=== PATIENT | male | born 1960 | race Caucasian/White ===

== ENCOUNTER 2018-10-03 12:37 | Emergency (ER) | payer MEDICAID ==
[~2018-10-03] VITALS: Ht 160 cm; Wt 60.0 kg
[~2018-10-03 12:37] MED LIST: ALBU18HF2 IH; ALBU8.5H8 INH; ATOR10TA87 PO; BECL7.3A INH; BECL8.7A7 INH; CLA10T PO; IBUP-1984 PO; MECL12.584 PO; PANT20TA2 PO; SOTA80TA PO; WARF5TAB PO; ZOLP5TAB8 PO; tylenol PO
[2018-10-03 12:41] VITALS: BP 150/70
== END 2018-10-03 14:48 | disposition home or self-care (01) ==
LOC: ER 12:37
DX: S86.912A Strain of unspecified muscle(s) and tendon(s) at lower leg level, left leg, initial encounter (principal); E78.00 Pure hypercholesterolemia, unspecified; I48.91 Unspecified atrial fibrillation; I10 Essential (primary) hypertension; K21.9 Gastro-esophageal reflux disease without esophagitis; J44.9 Chronic obstructive pulmonary disease, unspecified; E11.9 Type 2 diabetes mellitus without complications; Z86.73 Personal history of transient ischemic attack (TIA), and cerebral infarction without residual deficits; X58.XXXA Exposure to other specified factors, initial encounter; Y93.01 Activity, walking, marching and hiking; Y92.89 Other specified places as the place of occurrence of the external cause; Y99.8 Other external cause status
CPT/HCPCS: 99284

== ENCOUNTER 2024-05-18 15:21 | Inpatient (IN) | payer MEDICAID ==
[~2024-05-18] VITALS: Ht 165.1 cm; Wt 60.1 kg
[~2024-05-18 15:21] MED LIST changes: +ALBU8.5H17 INH; -ALBU8.5H8 INH; +MECL-226 PO; -MECL12.584 PO; -WARF5TAB PO; +WARF5TAB2 PO
[2024-05-18 15:53] LABS: BILIRUBIN,URINE NEGATIVE (Neg); CLARITY,URINE CLEAR (Clear); COLOR,URINE YELLOW (Yellow); GLUCOSE, URINE NEGATIVE (Neg); KETONES,URINE NEGATIVE (Neg); LEUKOCYTE ESTERASE ,URINE NEGATIVE (Neg); NITRITES, URINE NEGATIVE (Neg); OCCULT BLOOD,URINE SMALL (Neg); PROTEIN,URINE NEGATIVE (Neg); UROBILINOGEN,URINE 0.2 E.U/dL (0.2-1.0)
[2024-05-18 15:57] LABS: UA COLLECTION TYPE CLN CATCH MIDSTREAM
[2024-05-18 15:58] LABS: MUCUS STRANDS MODERATE /LPF (Neg); SQUAMOUS EPITHELIAL CELL,UR FEW /LPF (FEW)
[2024-05-18 15:59] LABS: BACTERIA,URINE FEW /HPF (Neg); WBC,URINE 0-4 /HPF (0-4)
[2024-05-18 16:13] LABS: BASOPHILS % (AUTO) 0.2 % (0-1); EOSINOPHILS # (AUTO) 0.1 X10'3 (0-0.9); HEMATOCRIT 37.9 % (42.0-52.0); HEMOGLOBIN 12.6 g/dl (14.0-17.9); LYMPHOCYTES # (AUTO) 2.2 X10'3 (1.1-4.8); LYMPHOCYTES % (AUTO) 29.5 % (21-51); MEAN CORPUSCULAR HEMOGLOBIN 30.4 PG (27.0-31.0); MEAN CORPUSCULAR HGB CONC 33.2 g/dL (33.0-36.5); MEAN CORPUSCULAR VOLUME 91.5 FL (78-98); MEAN PLATELET VOLUME 7.4 FL (7.4-10.4); MONOCYTES # (AUTO) 0.7 X10'3 (0-0.9); MONOCYTES % (AUTO) 9.2 % (2-12); NEUTROPHILS # (AUTO) 4.3 X10'3 (1.8-7.7); NEUTROPHILS % (AUTO) 59.1 % (42-75); PLATELET COUNT 169 X10'3 (140-440); RED BLOOD COUNT 4.14 X10'6 (4.70-6.10); RED CELL DISTRIBUTION WIDTH 15.3 % (11.5-14.5); WHITE BLOOD COUNT 7.3 X10'3 (4.5-11.0)
[2024-05-18] MEDS: normal saline 1000ml 1,000 ML IV ONE ×2 (16:26→17:24)
[2024-05-18 16:31] LABS: ALANINE AMINOTRANSFERASE 28 U/L (12-78); ALBUMIN 3.4 G/DL (3.4-5.0); ALKALINE PHOSPHATASE 70 IU/L (46-116); ANION GAP 9 (8-16); ASPARTATE AMINO TRANSFERASE 18 U/L (10-37); BILIRUBIN,TOTAL 0.8 MG/DL (0.1-1.0); BLOOD UREA NITROGEN 32 MG/DL (7-18); BUN/CREATININE RATIO 23.7 (10.0-20.0); CALCIUM 9.4 MG/DL (8.5-10.1); CHLORIDE 107 MMOL/L (99-107); CREATININE 1.35 MG/DL (0.60-1.10); ETHANOL < 10 MG/DL (<10); GLUCOSE 124 MG/DL (70-104); LIPASE 83 U/L (16-77); MAGNESIUM 2.1 MG/DL (1.5-2.4); SODIUM 143 MMOL/L (135-145); TOTAL CARBON DIOXIDE 27.3 MMOL/L (24-32); TOTAL PROTEIN 6.9 G/DL (6.4-8.2); eCRCL 46 ML/MIN; eGFR 53 ML/MIN
[2024-05-18 16:32] LABS: POTASSIUM 4.3 MMOL/L (3.5-5.1)
[2024-05-18] MEDS ORDERED: morphine 2 MG/ML inj. syringe IV PRN (17:15)
[2024-05-18] MEDS: ketorolac tromethamine 15mg/ml inj. IV ONE (17:23)
[2024-05-18] MEDS ORDERED: magnesium Cl slow-release 64mg tablet PO PRN (17:40)
[2024-05-18] MEDS ORDERED: mag hydrox/Alum hydrox/simeth 30ml oral suspension PO PRN (17:40)
[2024-05-18] MEDS ORDERED: magnesium 4gm in 100ml NS 100 ML IV PRN (17:40)
[2024-05-18] MEDS ORDERED: magnesium 2GM in 50ml NS 50 ML IV PRN (17:40)
[2024-05-18] MEDS ORDERED: magnesium hydroxide 30ml (MOM) UD suspension PO PRN (17:40)
[2024-05-18] MEDS ORDERED: potassium Cl 20 mEq SR tablet PO PRN ×2 (17:40)
[2024-05-18] MEDS ORDERED: acetaminophen 325mg tablet PO PRN (17:40)
[2024-05-18] MEDS ORDERED: potassium Cl 40MEQ/1/2NS 520ml 520 ML IV PRN (17:40)
[2024-05-18] MEDS ORDERED: CALC-1215 PO (17:41)
[2024-05-18] MEDS ORDERED: APIX5TAB3 PO (17:41)
[2024-05-18] MEDS ORDERED: ALBU18HF2 INH (17:41)
[2024-05-18] MEDS ORDERED: ATOR40TA PO (17:41)
[2024-05-18] MEDS ORDERED: TIOT4MIS3 (17:41)
[2024-05-18] MEDS ORDERED: MAGN400O6 PO (17:41)
[2024-05-18] MEDS: piperacillin/tazo 3.375gm/50ml 50 ML IV STA (17:57)
[2024-05-18] MEDS: dextrose 5%-1/2 normal saline 1,000 ML IV SCH (18:01)
[2024-05-18] MEDS ORDERED: aminophylline 250mg/10ml inj. IV PRN (18:20)
[2024-05-18] MEDS ORDERED: nitroGLYCERIN 0.4mg SUBLingual tab SL PRN (18:20)
[2024-05-18] MEDS ORDERED: metoprolol tartrate 1mg/ml inj IV PRN (18:20)
[2024-05-18 18:38] LABS: HEMOGLOBIN A1C 5.5 % (4.5-6.2)
[2024-05-18 20:05] VITALS: BP 135/58; PULSE 65; RESP 16; TEMP 97.8; O2SAT 98
[2024-05-18] MEDS: enoxaparin 40mg/0.4ml syringe SQ SCH (20:32)
[2024-05-18] MEDS: docusate sod 100mg capsule PO SCH (20:34)
[2024-05-18 21:00] VITALS: RESP 16; O2SAT 98
[2024-05-18 23:00] VITALS: BP 127/46; PULSE 65; RESP 18; TEMP 98; O2SAT 97
[2024-05-19] VITALS (13 sets, daily range): BP systolic 97–140; BP diastolic 49–63; PULSE 48–87; RESP 14–20; TEMP 97.4–97.9; O2SAT 97–99
[2024-05-19] MEDS: piperacillin/tazo 3.375gm/50ml 50 ML IV SCH (00:32)
[2024-05-19 06:14] LABS: BASOPHILS % (AUTO) 0.7 % (0-1); EOSINOPHILS # (AUTO) 0.2 X10'3 (0-0.9); EOSINOPHILS % (AUTO) 2.9 % (0-6); HEMATOCRIT 33.1 % (42.0-52.0); HEMOGLOBIN 10.9 g/dl (14.0-17.9); LYMPHOCYTES # (AUTO) 2.2 X10'3 (1.1-4.8); LYMPHOCYTES % (AUTO) 35.4 % (21-51); MEAN CORPUSCULAR HEMOGLOBIN 29.9 PG (27.0-31.0); MEAN CORPUSCULAR HGB CONC 32.9 g/dL (33.0-36.5); MEAN CORPUSCULAR VOLUME 90.9 FL (78-98); MEAN PLATELET VOLUME 7.9 FL (7.4-10.4); MONOCYTES # (AUTO) 0.7 X10'3 (0-0.9); MONOCYTES % (AUTO) 11.1 % (2-12); NEUTROPHILS # (AUTO) 3.2 X10'3 (1.8-7.7); NEUTROPHILS % (AUTO) 49.9 % (42-75); PLATELET COUNT 137 X10'3 (140-440); RED BLOOD COUNT 3.64 X10'6 (4.70-6.10); RED CELL DISTRIBUTION WIDTH 15.2 % (11.5-14.5); WHITE BLOOD COUNT 6.3 X10'3 (4.5-11.0)
[2024-05-19 06:29] LABS: PRE OP PARTIAL THROMB. TIME 29 SECONDS (22-32); PROTHROMBIN TIME 10.8 SECONDS (9.0-12.0)
[2024-05-19 06:46] LABS: ALANINE AMINOTRANSFERASE 24 U/L (12-78); ALBUMIN 2.7 G/DL (3.4-5.0); ALBUMIN/GLOBULIN RATIO 0.9 (1.1-1.5); ALKALINE PHOSPHATASE 61 IU/L (46-116); ANION GAP 11 (8-16); ASPARTATE AMINO TRANSFERASE 20 U/L (10-37); BILIRUBIN,TOTAL 0.4 MG/DL (0.1-1.0); BLOOD UREA NITROGEN 38 MG/DL (7-18); BUN/CREATININE RATIO 30.6 (10.0-20.0); CALCIUM 8.2 MG/DL (8.5-10.1); CHLORIDE 111 MMOL/L (99-107); CHOL/HDL RATIO 2.2 (0.00-4.99); CHOLESTEROL 108 MG/DL (0-200); CREATININE 1.24 MG/DL (0.60-1.10); GLUCOSE 107 MG/DL (70-104); HDL CHOLESTEROL 49 MG/DL (35-60); LDL CHOLESTEROL 49 MG/DL (50-100); MAGNESIUM 1.9 MG/DL (1.5-2.4); POTASSIUM 3.8 MMOL/L (3.5-5.1); SODIUM 144 MMOL/L (135-145); TOTAL CARBON DIOXIDE 21.6 MMOL/L (24-32); TOTAL PROTEIN 5.6 G/DL (6.4-8.2); TRIGLYCERIDES 70 MG/DL (20-135); eCRCL 50 ML/MIN; eGFR 59 ML/MIN
[2024-05-19] MEDS: enoxaparin 40mg/0.4ml syringe SUBCUT SCH (07:27)
[2024-05-19] MEDS: morphine 2 MG/ML inj. syringe IV PRN (07:47)
[2024-05-19] MEDS ORDERED: acetaminophen 325mg tablet PO PRN (10:55)
[2024-05-19] MEDS: regadenoson 0.4mg/5ml syringe IV PRN (11:08)
[2024-05-19] MEDS: enoxaparin 60mg/0.6ml syringe SUBCUT SCH (12:23)
[2024-05-19] MEDS ORDERED: magnesium hydroxide 30ml (MOM) UD suspension PO SCH (20:00)
[2024-05-19] MEDS: sotalol HCl 40mg (1/2 tablet) PO SCH (20:32)
[2024-05-19] MEDS: HYDROcodone/acetaminophen 10/325mg tab PO PRN (20:34)
[2024-05-19] MEDS: atorvastatin 20mg tablet PO SCH (20:34)
[2024-05-19] MEDS: calcium carbonate/vitamin D3 tablet PO SCH (20:34)
[2024-05-20] VITALS (26 sets, daily range): BP systolic 109–174; BP diastolic 51–81; PULSE 53–77; RESP 13–20; TEMP 96.8–99; O2SAT 92–100
[2024-05-20] MEDS: HYDROcodone/acetaminophen 5mg/325mg tablet PO PRN (00:42)
[2024-05-20 05:42] LABS: BASOPHILS % (AUTO) 0.5 % (0-1); EOSINOPHILS # (AUTO) 0.2 X10'3 (0-0.9); EOSINOPHILS % (AUTO) 4.5 % (0-6); HEMATOCRIT 31.3 % (42.0-52.0); HEMOGLOBIN 10.4 g/dl (14.0-17.9); LYMPHOCYTES # (AUTO) 2.3 X10'3 (1.1-4.8); LYMPHOCYTES % (AUTO) 43.6 % (21-51); MEAN CORPUSCULAR HEMOGLOBIN 30.4 PG (27.0-31.0); MEAN CORPUSCULAR HGB CONC 33.2 g/dL (33.0-36.5); MEAN CORPUSCULAR VOLUME 91.6 FL (78-98); MEAN PLATELET VOLUME 7.9 FL (7.4-10.4); MONOCYTES # (AUTO) 0.5 X10'3 (0-0.9); MONOCYTES % (AUTO) 9.2 % (2-12); NEUTROPHILS # (AUTO) 2.2 X10'3 (1.8-7.7); NEUTROPHILS % (AUTO) 42.2 % (42-75); PLATELET COUNT 129 X10'3 (140-440); RED BLOOD COUNT 3.41 X10'6 (4.70-6.10); RED CELL DISTRIBUTION WIDTH 15.1 % (11.5-14.5); WHITE BLOOD COUNT 5.3 X10'3 (4.5-11.0)
[2024-05-20 06:11] LABS: ALANINE AMINOTRANSFERASE 23 U/L (12-78); ALBUMIN 2.5 G/DL (3.4-5.0); ALBUMIN/GLOBULIN RATIO 0.9 (1.1-1.5); ALKALINE PHOSPHATASE 38 IU/L (46-116); ANION GAP 9 (8-16); ASPARTATE AMINO TRANSFERASE 14 U/L (10-37); BILIRUBIN,TOTAL 0.6 MG/DL (0.1-1.0); BLOOD UREA NITROGEN 24 MG/DL (7-18); BUN/CREATININE RATIO 18.2 (10.0-20.0); CALCIUM 7.9 MG/DL (8.5-10.1); CHLORIDE 106 MMOL/L (99-107); CREATININE 1.32 MG/DL (0.60-1.10); GLUCOSE 389 MG/DL (70-104); MAGNESIUM 1.8 MG/DL (1.5-2.4); POTASSIUM 3.8 MMOL/L (3.5-5.1); SODIUM 139 MMOL/L (135-145); TOTAL PROTEIN 5.2 G/DL (6.4-8.2); eCRCL 47 ML/MIN; eGFR 54 ML/MIN
[2024-05-20] MEDS: Tiotropium Br/Olodaterol HCl (Stiolto Respimat Inhal Spray) IH SCH (08:00)
[2024-05-20 09:08] LABS: PROTHROMBIN TIME 10.9 SECONDS (9.0-12.0)
[2024-05-20] MEDS: normal saline 1000ml 1,000 ML IV SCH (11:32)
[2024-05-20] MEDS ORDERED: morphine 2 MG/ML inj. syringe IV PRN (14:30)
[2024-05-20] MEDS ORDERED: meperidine/PF 25mg/ml syringe IV PRN ×2 (14:30)
[2024-05-20] MEDS ORDERED: morphine 4 MG/ML inj SYRINge IV PRN (14:30)
[2024-05-20] MEDS ORDERED: proCHLORperazine 10 MG/2 ml inj IV PRN (14:30)
[2024-05-20] MEDS ORDERED: labetalol 20mg/4ml (5mg/ml) syringe IV PRN (14:30)
[2024-05-20] MEDS ORDERED: ringers solution, lacted 1,000 ML IV SCH (14:30)
[2024-05-20] MEDS ORDERED: ondansetron/PF 4mg/2ml inj IV PRN (14:30)
[2024-05-20] MEDS: BUPIVAcaine/PF 2.5mg/ml (0.25%) 10ml vial ONE (14:55)
[2024-05-20] MEDS ORDERED: midazolam 1 mg/ML 2ml injection ONE (16:01)
[2024-05-20] MEDS ORDERED: fentaNYL/PF 50MCG/1 ML 2ML syringe ONE (16:01)
[2024-05-20] MEDS ORDERED: propofol inj 20 ML IV ONE (16:14)
[2024-05-20] MEDS ORDERED: LIDOcaine 2% (20mg/ml) 5ml vial ONE (16:14)
[2024-05-20] MEDS ORDERED: rocuronium 10mg/ml inj IV ONE (16:14)
[2024-05-20] MEDS ORDERED: sevoflurane 250ml liquid IH ONE (16:20)
[2024-05-20] MEDS: BUPIVAcaine/PF 5 MG/ML 10ML VIAL IJ ONE (17:00)
[2024-05-20] MEDS ORDERED: ondansetron/PF 4mg/2ml inj ONE (17:16)
[2024-05-20] MEDS ORDERED: ketorolac trometh. 30mg/ml inj. ONE (17:19)
[2024-05-20] MEDS ORDERED: neostigmine methylsulfate 1 MG/ML 10ml vial ONE (17:20)
[2024-05-20] MEDS ORDERED: glycopyrrolate 0.2mg/ml inj ONE (17:20)
[2024-05-20] MEDS: meperidine/PF 25mg/ml syringe IV PRN (18:30)
[2024-05-20] MEDS: enalaprilat dihydrate 2.5mg/2ml vial IV PRN (18:37)
[2024-05-20] MEDS: morphine 2 MG/ML inj. syringe IV PRN (22:14)
[2024-05-20] MEDS: ondansetron/PF 4mg/2ml inj IV PRN (22:18)
[2024-05-21] VITALS (10 sets, daily range): BP systolic 95–113; BP diastolic 40–71; PULSE 60–78; RESP 16–20; TEMP 96.8–98.4; O2SAT 91–99
[2024-05-21 07:13] LABS: ALANINE AMINOTRANSFERASE 104 U/L (12-78); ALBUMIN 2.8 G/DL (3.4-5.0); ALBUMIN/GLOBULIN RATIO 0.9 (1.1-1.5); ALKALINE PHOSPHATASE 53 IU/L (46-116); ANION GAP 12 (8-16); ASPARTATE AMINO TRANSFERASE 112 U/L (10-37); BILIRUBIN,TOTAL 1.1 MG/DL (0.1-1.0); BLOOD UREA NITROGEN 24 MG/DL (7-18); BUN/CREATININE RATIO 19.2 (10.0-20.0); CALCIUM 8.2 MG/DL (8.5-10.1); CHLORIDE 109 MMOL/L (99-107); CREATININE 1.25 MG/DL (0.60-1.10); GLUCOSE 130 MG/DL (70-104); MAGNESIUM 1.8 MG/DL (1.5-2.4); POTASSIUM 4.7 MMOL/L (3.5-5.1); SODIUM 141 MMOL/L (135-145); TOTAL CARBON DIOXIDE 19.8 MMOL/L (24-32); TOTAL PROTEIN 5.9 G/DL (6.4-8.2); eCRCL 50 ML/MIN; eGFR 58 ML/MIN
[2024-05-21 13:05] LABS: BASOPHILS % (AUTO) 0 % (0-1); EOSINOPHILS % (AUTO) 0 % (0-6); HEMATOCRIT 33.5 % (42.0-52.0); HEMOGLOBIN 10.9 g/dl (14.0-17.9); LYMPHOCYTES # (AUTO) 1.2 X10'3 (1.1-4.8); LYMPHOCYTES % (AUTO) 10.7 % (21-51); MEAN CORPUSCULAR HEMOGLOBIN 30.6 PG (27.0-31.0); MEAN CORPUSCULAR HGB CONC 32.4 g/dL (33.0-36.5); MEAN CORPUSCULAR VOLUME 94.3 FL (78-98); MEAN PLATELET VOLUME 7.8 FL (7.4-10.4); MONOCYTES # (AUTO) 0.9 X10'3 (0-0.9); MONOCYTES % (AUTO) 8.5 % (2-12); NEUTROPHILS # (AUTO) 8.9 X10'3 (1.8-7.7); NEUTROPHILS % (AUTO) 80.8 % (42-75); PLATELET COUNT 141 X10'3 (140-440); RED BLOOD COUNT 3.55 X10'6 (4.70-6.10); RED CELL DISTRIBUTION WIDTH 15.4 % (11.5-14.5)
[2024-05-21 21:31] LABS: HEMATOCRIT 30.7 % (42.0-52.0); HEMOGLOBIN 10.2 g/dl (14.0-17.9); MEAN CORPUSCULAR HEMOGLOBIN 30.9 PG (27.0-31.0); MEAN CORPUSCULAR HGB CONC 33.2 g/dL (33.0-36.5); MEAN PLATELET VOLUME 7.8 FL (7.4-10.4); PLATELET COUNT 154 X10'3 (140-440); RED CELL DISTRIBUTION WIDTH 15.3 % (11.5-14.5); WHITE BLOOD COUNT 8.8 X10'3 (4.5-11.0)
[2024-05-22] VITALS (10 sets, daily range): BP systolic 102–137; BP diastolic 38–48; PULSE 68–87; RESP 16–20; TEMP 97–98.5; O2SAT 91–98
[2024-05-22] MEDS: albuterol 2.5 MG/3 ML nebule NEB PRN (01:43)
[2024-05-22 04:26] LABS: BASOPHILS % (AUTO) 0.1 % (0-1); EOSINOPHILS % (AUTO) 0.1 % (0-6); HEMATOCRIT 30.1 % (42.0-52.0); HEMOGLOBIN 9.5 g/dl (14.0-17.9); LYMPHOCYTES # (AUTO) 1.9 X10'3 (1.1-4.8); LYMPHOCYTES % (AUTO) 26.5 % (21-51); MEAN CORPUSCULAR HEMOGLOBIN 30.5 PG (27.0-31.0); MEAN CORPUSCULAR HGB CONC 31.5 g/dL (33.0-36.5); MEAN CORPUSCULAR VOLUME 96.7 FL (78-98); MEAN PLATELET VOLUME 7.7 FL (7.4-10.4); MONOCYTES # (AUTO) 0.9 X10'3 (0-0.9); MONOCYTES % (AUTO) 12.5 % (2-12); NEUTROPHILS # (AUTO) 4.3 X10'3 (1.8-7.7); NEUTROPHILS % (AUTO) 60.8 % (42-75); PLATELET COUNT 129 X10'3 (140-440); RED BLOOD COUNT 3.11 X10'6 (4.70-6.10); RED CELL DISTRIBUTION WIDTH 15.9 % (11.5-14.5); WHITE BLOOD COUNT 7.2 X10'3 (4.5-11.0)
[2024-05-22 04:42] LABS: ALANINE AMINOTRANSFERASE 83 U/L (12-78); ALBUMIN 2.5 G/DL (3.4-5.0); ALBUMIN/GLOBULIN RATIO 0.9 (1.1-1.5); ALKALINE PHOSPHATASE 47 IU/L (46-116); ANION GAP 7 (8-16); ASPARTATE AMINO TRANSFERASE 68 U/L (10-37); BILIRUBIN,TOTAL 0.7 MG/DL (0.1-1.0); BLOOD UREA NITROGEN 31 MG/DL (7-18); BUN/CREATININE RATIO 21.8 (10.0-20.0); CHLORIDE 112 MMOL/L (99-107); CREATININE 1.42 MG/DL (0.60-1.10); GLUCOSE 132 MG/DL (70-104); POTASSIUM 4.2 MMOL/L (3.5-5.1); SODIUM 142 MMOL/L (135-145); TOTAL CARBON DIOXIDE 23.4 MMOL/L (24-32); TOTAL PROTEIN 5.3 G/DL (6.4-8.2); eCRCL 44 ML/MIN; eGFR 50 ML/MIN
[2024-05-22] MEDS ORDERED: ondansetron 4mg rapidly disintigrating tab PO PRN (10:40)
[2024-05-22] MEDS: DICLOFENAC SODIUM 1% gel 1 APPLIC APPLIC TP SCH (19:51)
[2024-05-23 04:22] LABS: BASOPHILS % (AUTO) 0.2 % (0-1); EOSINOPHILS # (AUTO) 0.1 X10'3 (0-0.9); EOSINOPHILS % (AUTO) 2.2 % (0-6); HEMATOCRIT 25.8 % (42.0-52.0); HEMOGLOBIN 8.4 g/dl (14.0-17.9); LYMPHOCYTES # (AUTO) 2.2 X10'3 (1.1-4.8); LYMPHOCYTES % (AUTO) 34.7 % (21-51); MEAN CORPUSCULAR HEMOGLOBIN 30.3 PG (27.0-31.0); MEAN CORPUSCULAR HGB CONC 32.4 g/dL (33.0-36.5); MEAN CORPUSCULAR VOLUME 93.5 FL (78-98); MEAN PLATELET VOLUME 7.8 FL (7.4-10.4); MONOCYTES # (AUTO) 0.8 X10'3 (0-0.9); MONOCYTES % (AUTO) 12.1 % (2-12); NEUTROPHILS # (AUTO) 3.2 X10'3 (1.8-7.7); NEUTROPHILS % (AUTO) 50.8 % (42-75); PLATELET COUNT 116 X10'3 (140-440); RED BLOOD COUNT 2.76 X10'6 (4.70-6.10); RED CELL DISTRIBUTION WIDTH 15.7 % (11.5-14.5); WHITE BLOOD COUNT 6.2 X10'3 (4.5-11.0)
[2024-05-23 04:41] LABS: ALANINE AMINOTRANSFERASE 96 U/L (12-78); ALBUMIN 2.4 G/DL (3.4-5.0); ALBUMIN/GLOBULIN RATIO 0.9 (1.1-1.5); ALKALINE PHOSPHATASE 58 IU/L (46-116); ANION GAP 6 (8-16); ASPARTATE AMINO TRANSFERASE 94 U/L (10-37); BILIRUBIN,TOTAL 0.6 MG/DL (0.1-1.0); BLOOD UREA NITROGEN 28 MG/DL (7-18); BUN/CREATININE RATIO 21.7 (10.0-20.0); CALCIUM 8.4 MG/DL (8.5-10.1); CHLORIDE 112 MMOL/L (99-107); CREATININE 1.29 MG/DL (0.60-1.10); GLUCOSE 102 MG/DL (70-104); POTASSIUM 4.2 MMOL/L (3.5-5.1); SODIUM 144 MMOL/L (135-145); TOTAL CARBON DIOXIDE 25.6 MMOL/L (24-32); TOTAL PROTEIN 5.2 G/DL (6.4-8.2); eCRCL 49 ML/MIN; eGFR 56 ML/MIN
[2024-05-23 06:55] VITALS: BP 125/54; PULSE 77; RESP 16; TEMP 97.7; O2SAT 94
[2024-05-23 09:36] VITALS: PULSE 75; RESP 16; O2SAT 92
[2024-05-23 09:43] VITALS: PULSE 81; RESP 16
[2024-05-23] MEDS ORDERED: METR-159 PO (10:15)
[2024-05-23] MEDS ORDERED: CIPR-259 PO (13:03)
[2024-05-23 14:13] LABS: HEMATOCRIT 29.3 % (42.0-52.0); HEMOGLOBIN 9.8 g/dl (14.0-17.9); MEAN CORPUSCULAR HEMOGLOBIN 30.7 PG (27.0-31.0); MEAN CORPUSCULAR HGB CONC 33.4 g/dL (33.0-36.5); MEAN CORPUSCULAR VOLUME 91.9 FL (78-98); MEAN PLATELET VOLUME 7.9 FL (7.4-10.4); PLATELET COUNT 132 X10'3 (140-440); RED BLOOD COUNT 3.18 X10'6 (4.70-6.10); RED CELL DISTRIBUTION WIDTH 15.4 % (11.5-14.5); WHITE BLOOD COUNT 8.2 X10'3 (4.5-11.0)
== END 2024-05-23 14:52 | disposition home or self-care (01) | DRG 263 ==
LOC: ER 15:22 → ED HOLD 17:45 → SUR 3N 20:03
PROVIDERS: ADMIT Internal Medicine; ATTEND Internal Medicine
PROC: 4A02XM4 Measurement of Cardiac Total Activity, External Approach (ICD-10-PCS; 2024-05-18)
PROC: 3E033HZ Introduction of Radioactive Substance into Peripheral Vein, Percutaneous Approach (ICD-10-PCS; 2024-05-18)
PROC: 0FT44ZZ Resection of Gallbladder, Percutaneous Endoscopic Approach (ICD-10-PCS; principal; 2024-05-20 16:20)
DX: K80.12 Calculus of gallbladder with acute and chronic cholecystitis without obstruction (principal); I69.351 Hemiplegia and hemiparesis following cerebral infarction affecting right dominant side; D64.9 Anemia, unspecified; E78.00 Pure hypercholesterolemia, unspecified; I10 Essential (primary) hypertension; E11.9 Type 2 diabetes mellitus without complications; I48.0 Paroxysmal atrial fibrillation; I65.22 Occlusion and stenosis of left carotid artery; R33.9 Retention of urine, unspecified; J44.9 Chronic obstructive pulmonary disease, unspecified; K21.9 Gastro-esophageal reflux disease without esophagitis; Z87.891 Personal history of nicotine dependence; Z79.01 Long term (current) use of anticoagulants; Z79.899 Other long term (current) drug therapy
CPT/HCPCS: 36415; 71045; 76700; 78452; 80053; 80061; 80320; 81001; 82948; 83036; 83690; 83735; 85025; 85027; 85610; 85730; 86885; 86900; 86901; 87081; 93005; 93017; 93306; 93880; 94640; 94664; 94760; 96374; 97116; 97161; 99285; A4215; A4340; A4349; A4618; A6212; A6253; A6402; A6449; A6590; A7000; A9500; C1758; G0378; J0665; J1100; J1650; J1885; J2175; J2250; J2270; J2405; J2543; J2704; J2710; J2785; J3010; J3490; J7030; J7120

== ENCOUNTER 2024-07-18 17:55 | Emergency (ER) | payer MEDICARE, MEDICAID ==
[~2024-07-18] VITALS: Ht 165.1 cm; Wt 56.4 kg
[~2024-07-18 17:55] MED LIST changes: -ALBU18HF2 IH; +ALBU18HF2 INH; -ALBU8.5H17 INH; +APIX5TAB3 PO; -ATOR10TA87 PO; +ATOR40TA PO; -BECL7.3A INH; -BECL8.7A7 INH; +CALC-1215 PO; +CIPR-259 PO; -CLA10T PO; -IBUP-1984 PO; +MAGN400O6 PO; -MECL-226 PO; -PANT20TA2 PO; +TIOT4MIS3; -WARF5TAB2 PO; -ZOLP5TAB8 PO
[2024-07-18 18:00] VITALS: TEMP 97.8
[2024-07-18] MEDS: ondansetron 4mg rapidly disintigrating tab PO ONE (19:46)
[2024-07-18] MEDS: HYDROcodone/acetaminophen 5mg/325mg tablet PO ONE (19:46)
[2024-07-18 19:53] VITALS: BP 174/81; PULSE 71; RESP 16; O2SAT 98
== END 2024-07-18 19:56 | disposition home or self-care (01) ==
LOC: ER 17:55
DX: M25.671 Stiffness of right ankle, not elsewhere classified (principal); I48.91 Unspecified atrial fibrillation; E78.00 Pure hypercholesterolemia, unspecified; I10 Essential (primary) hypertension; J44.9 Chronic obstructive pulmonary disease, unspecified; K21.9 Gastro-esophageal reflux disease without esophagitis; E11.9 Type 2 diabetes mellitus without complications; Z79.899 Other long term (current) drug therapy; Z79.2 Long term (current) use of antibiotics
CPT/HCPCS: 73610; 99283

== ENCOUNTER 2025-06-28 13:33 | Emergency (ER) | payer MEDICARE, MEDICAID ==
[~2025-06-28] VITALS: Ht 170.2 cm; Wt 56.4 kg
[~2025-06-28 13:33] MED LIST changes: -CIPR-259 PO
[2025-06-28 13:42] VITALS: TEMP 98.5
--- NOTE | 2025-06-28 14:53 | Physician Documentation ---
History of Present Illness ~ Chief Complaint: Mechanical Fall Stated Complaint: FALL Time Seen by MD: 14:43 Primary Medical Doctor: Dr Owens Mode of Arrival: EMS HPI 65-year-old male presents to the ED home with a complaint of a ground level fall this morning. States he did hit his head but denies any loss of consciousness denies any blood thinners as well. Currently his complaints are neck pain but primarily he is complaining of some right lower extremity pain including his hip and upper right leg. Patient is a poor historian but does not presented any acute distress Day of Fall: Jun 28, 2025 Tetanus within 5 Years?: Yes Medication Reconciliation Allergies: Coded Allergies: No Known Allergies (Unverified , 11/19/24) Scheduled Apixaban (Eliquis), 1 TAB PO Q12H, (Reported) Atorvastatin Calcium* (Lipitor*), 1 TAB PO HS, (Reported) Calcium Carbonate/Vitamin D3 (Calcium + D 600 Mg Tablet), 1 TAB PO Q12H, (Reported) Magnesium Hydroxide (Milk of Magnesia), 5 ML PO Q12H, (Reported) Sotalol Hcl (Sotalol), 40 MG PO BID, (Reported) Tiotropium Br/Olodaterol HCl (Stiolto Respimat Inhal [place]), 2 PUFFS QAM, (Reported) Scheduled PRN Albuterol Sulfate (Ventolin Hfa), 2 PUFFS INH Q4HPRN PRN for wheezing, (Reported) [tylenol], 500 MG PO Q8HPRN PRN for pain, (Reported) Past Medical History Past Medical History: CVA/TIA/Stroke, Atrial Fibrillation, High Cholesterol, Hypertension, COPD, Pneumonia, GERD, Diabetes Past Surgical History: no surgical history Patient History: Patient reports no known family medical history. Alcohol Use: None Drug Use: none Lives with: Other Lives In: Assisted Care Occupation: retired Physical Exam Vital Signs: Temperature: 98.5, Source: Oral, Heart Rate: 67, Respiratory Rate: 18, BP: 131/55, Pulse Oximetry: 96, Weight: 56.360 Oxygen Flow Rate: 0 Progress Results/Orders Results/Orders Orders - ISAIAS SHOOK CRAB FISHER Femur 1 View (06/28/25 14:50) Hip Unilateral 2 Views (06/28/25 14:50) Completed Orders - ISAIAS SHOOK CRAB FISHER Femur 1 View (06/28/25 14:50) Hip Unilateral 2 Views (06/28/25 14:50) Hydrocodone/Apap 10/325 ([place] 10/325mg (06/28/25 15:50) Vital Signs 06/28/25 06/28/25 06/28/25 06/28/25 13:42 13:55 15:12 16:26 Temp 98.5 Pulse 67 78 77 Resp 18 15 18 B/P (MAP) 131/55 121/51 (74) 142/69 Pulse Ox 96 96 98 O2 Flow Rate 0 Departure Disposition: 01 HOME / SELF CARE / HOMELESS Impression: Primary Impression: Fall Condition: Stable Discharge Instructions: Fall Prevention in the Home, Adult, [id number] Referrals: NO PRIMARY CARE PROVIDER (PCP) Education Educated: Patient Educated regarding: diagnosis Signature Scribe Signature: g Attestation: Scribed for Isaias Shook Digital Sales Manager by Isaias Shook - GARETT . 06/28/25 21:27 ISAIAS SHOOK CRAB FISHER Jun 28, 2025 14:53
--- NOTE | 2025-06-28 15:37 | RADIOLOGY REPORT ---
CT CT HEAD INDICATION: MECHANICAL FALL/NECK PAIN EXAM DATE: 06/28/2025 02:06 PM COMPARISON: None RADIATION DOSE: CTDIvol: 63 mGy, DLP: 1162 mGy*cm PROCEDURE: CT scans of the head were obtained from the vertex to the skull base. Sagittal and coronal reconstructions were provided. All CT scans at this medical facility are performed using dose modulation techniques as appropriate t o a performed exam including the following: Automated exposure control was utilized; adjustment of th e MA and/or KV according to patient size; and use of iterative reconstruction technique. FINDINGS: Severe left cerebral encephalomalacia from old infarct. There is sulcal and ventricular pro minence. The brain otherwise shows normal morphology and jerry-white matter differentiation, without i ntracranial hemorrhage, extra-axial fluid collection, mass effect or acute large vessel infarct. The ventricles are enlarged in size. The basal cisterns are patent. The skull and visible facial bones ar e intact. The paranasal sinuses, mastoid air cells and middle ear cavities are well-aerated. The soft tissues of the scalp are unremarkable. IMPRESSION: Severe left cerebral encephalomalacia from old infarct. No acute intracranial abnormality.
--- NOTE | 2025-06-28 15:41 | RADIOLOGY REPORT ---
CLINICAL INDICATION: fall, trauma, pain TECHNIQUE: Right DI FEMUR 1 VIEW Comparison: None FINDINGS/IMPRESSION: : There is no evidence of acute fracture or dislocation. Soft tissues are unremarkable.
--- NOTE | 2025-06-28 15:41 | RADIOLOGY REPORT ---
CT CT CERVICAL SPINE INDICATION: MECHANICAL FALL/NECK PAIN EXAM DATE: 06/28/2025 02:08 PM COMPARISON: None RADIATION DOSE: CTDIvol: 20 mGy, DLP: 364 mGy*cm PROCEDURE: Utilizing the CT scanner, contiguous axial images were obtained through the cervical spine . Coronal and sagittal reformatted images were then generated. All CT scans at this medical facility are performed using dose modulation techniques as appropriate t o a performed exam including the following: Automated exposure control was utilized; adjustment of th e MA and/or KV according to patient size; and use of iterative reconstruction technique. FINDINGS: Alignment at the craniocervical junction is maintained. The cortical margins are intact. Th e vertebral body heights and cervical alignment are normal. The facet joints show normal alignment wi thout fracture. The intervertebral disc spaces are narrow and degenerative. The paraspinal soft tissu es appear normal. On axial images: There is multilevel posterior disc osteophyte complex. No significant central canal or neural foramina narrowing. Facet and uncinate spondylosis is seen. IMPRESSION: No cervical spine fracture or subluxation.
[2025-06-28] MEDS ORDERED: HYDROcodone/acetaminophen 10/325mg tab PO ONE (15:50)
--- NOTE | 2025-06-28 16:13 | RADIOLOGY REPORT ---
CLINICAL INDICATION: Pain; fall TECHNIQUE: 2 radiographic views of the left hip and 2 views of the pelvis were obtained. Comparison: None FINDINGS/IMPRESSION: There is no evidence of acute fracture or dislocation. The visualized joint space is well maintained. The alignment is anatomical. There is no radiopaque foreign body.
[2025-06-28 16:26] VITALS: BP 142/69; PULSE 77; RESP 18; O2SAT 98
== END 2025-06-28 16:15 | disposition home or self-care (01) ==
LOC: ER 13:33
DX: M54.2 Cervicalgia (principal); M79.661 Pain in right lower leg; M25.551 Pain in right hip; K21.9 Gastro-esophageal reflux disease without esophagitis; E11.9 Type 2 diabetes mellitus without complications; E78.00 Pure hypercholesterolemia, unspecified; I10 Essential (primary) hypertension; I48.91 Unspecified atrial fibrillation; J44.9 Chronic obstructive pulmonary disease, unspecified; Z86.73 Personal history of transient ischemic attack (TIA), and cerebral infarction without residual deficits; Z79.899 Other long term (current) drug therapy; W18.30XA Fall on same level, unspecified, initial encounter; Y93.89 Activity, other specified; Y92.89 Other specified places as the place of occurrence of the external cause; Y99.8 Other external cause status
CPT/HCPCS: 70450; 72125; 73502; 73551; 99284

== ENCOUNTER 2025-06-30 19:21 | Emergency (ER) | payer MEDICARE, MEDICAID ==
[~2025-06-30] VITALS: Ht 170.2 cm; Wt 56.4 kg
[2025-06-30 19:28] VITALS: TEMP 98.1
[2025-06-30 20:46] VITALS: BP 127/57; PULSE 55; RESP 17; O2SAT 98
--- NOTE | 2025-06-30 21:29 | Physician Documentation ---
History of Present Illness ~ Chief Complaint: Leg Pain Stated Complaint: R LEG PAIN Time Seen by MD: 20:41 Primary Medical Doctor: Dr Owens Mode of Arrival: EMS HPI Patient is seen today with complaints of pain in his right leg from his hip to his right knee. Patient states that this has been going on for about a week. Patient states he is not exactly sure why has been hurting. Patient denies any chest pain or shortness of breath or abdominal pain or nausea, vomiting, diarrhea. Patient has no other concern or complaint at this time. Tetanus witin 5 years: Yes Medication Reconciliation Allergies: Coded Allergies: No Known Allergies (Unverified , 11/19/24) Scheduled Apixaban (Eliquis), 1 TAB PO Q12H, (Reported) Atorvastatin Calcium* (Lipitor*), 1 TAB PO HS, (Reported) Calcium Carbonate/Vitamin D3 (Calcium + D 600 Mg Tablet), 1 TAB PO Q12H, (Reported) Magnesium Hydroxide (Milk of Magnesia), 5 ML PO Q12H, (Reported) Sotalol Hcl (Sotalol), 40 MG PO BID, (Reported) Tiotropium Br/Olodaterol HCl (Stiolto Respimat Inhal [place]), 2 PUFFS QAM, (Reported) Scheduled PRN Albuterol Sulfate (Ventolin Hfa), 2 PUFFS INH Q4HPRN PRN for wheezing, (Reported) [tylenol], 500 MG PO Q8HPRN PRN for pain, (Reported) Past Medical History Past Medical History: CVA/TIA/Stroke, Atrial Fibrillation, High Cholesterol, Hypertension, COPD, Pneumonia, GERD, Diabetes Past Surgical History: no surgical history Patient History: Patient reports no known family medical history. Alcohol Use: None Drug Use: none Lives with: Other Lives In: Assisted Care Occupation: retired Review of Systems Constitutional: Denies: chills, fever, weakness Eyes: Denies: pain, blurred vision ENT: Denies: ear pain, nose pain, throat pain, mouth pain Respiratory: Denies: cough, shortness of breath Cardiovascular: Denies: chest pain, palpitations Gastrointestinal: Denies: abdominal pain, nausea, vomiting Genitourinary: Denies: burning, dysuria Male Genitalia: Denies: penile discharge, testicular pain Neurological: Denies: headache, dizziness Musculoskeletal: Denies: pain, swelling Integumentary: Denies: rash, lesions Allergic/Immunologic: Denies: hives, itching Hematologic/Lymphatic: Denies: no symptoms reported Psychiatric: Denies: depression, anxiety Physical Exam Vital Signs: Temperature: 98.1, Heart Rate: 55, Respiratory Rate: 17, BP: 127/57, Pulse Oximetry: 98, Weight: 56.360 Oxygen Flow Rate: 0 Physical Exam General: Awake and Alert, no acute distress. HEENT: Conjunctiva pink, Sclera clear, Mucus Membranes moist. Neck: Supple without masses and tenderness. Resp: Unlabored. Lungs clear to auscultation bilaterally. Heart: Regular Rate and rhythm, normal S1 and S2 without murmur, rub or gallop. Musculoskeletal: Patient on exam does have no significant swelling or ec chymosis or sign of trauma of the right lower extremity. Patient is neurovascularly intact distally. Motor function intact distally. Patient is ambulatory and able to bear weight although he does favor the right leg. Ambulates with cane assistance. Extremities: No cyanosis,clubbing or edema. Skin: Warm and Dry. Progress Results/Orders Results/Orders Orders - CYRIL STEELE PAC Knee Limited (Ap/Lat) (06/30/25 21:54) Hip Unilateral 2 Views (06/30/25 21:54) Completed Orders - CYRIL STEELE PAC Knee Limited (Ap/Lat) (06/30/25 21:54) Hip Unilateral 2 Views (06/30/25 21:54) Vital Signs 06/30/25 06/30/25 06/30/25 19:28 19:43 20:46 Temp 98.1 Pulse 86 55 Resp 14 16 17 B/P (MAP) 130/65 127/57 (80) Pulse Ox 95 98 O2 Flow Rate 0 EKG/XRAY/CT/US/VASC/MRI Bone/Soft Tissue X-Ray (Ext.) : Additional Comment X-rays of right hip and right knee interpreted by myself today show no sign of acute fracture, bones in anatomic alignment, no osteolytic or blastic lesions. DIAGNOSTIC RADIOLOGY Patient: LU BELL Medical Record: [id number] [facility] : 1960, Age: 65 Sex: Male Location: ER Patient Status: REG ER Service Date/Time: 06/30/252153 Ordering Physician: CYRIL STEELE PAC Exam: HIP UNILATERAL 2 VIEWS CLINICAL INDICATION: right hip pain TECHNIQUE: 4 views, DI HIP UNILATERAL 2 VIEWS Comparison: DI FEMUR 1 VIEW on DOS: 06/28/25, DI HIP UNILATERAL 2 VIEWS on DOS: 06/28/25 FINDINGS/IMPRESSION: There is no evidence of acute fracture or dislocation. Soft tissues are unremarkable. Electronically Signed by:MARQUISE QUINONEZ MD Date & Time: 06/30/252207 Dictated by: MARQUISE QUINONEZ MD Dictation date and time: 06/30/252139 Primary Care Provider: NO PRIMARY CARE PROVIDER cc: CYRIL STEELE PAC ~ DIAGNOSTIC RADIOLOGY Patient: LU BELL Medical Record: [id number] [facility] : 1960, Age: 65 Sex: Male Location: ER Patient Status: REG ER Service Date/Time: 06/30/252153 Ordering Physician: CYRIL STEELE PAC Exam: KNEE LIMITED (AP/LAT) CLINICAL INDICATION: right knee pain TECHNIQUE: 2 views, DI KNEE LIMITED (AP/LAT) Comparison: DI FEMUR 1 VIEW on DOS: 06/28/25, DI HIP UNILATERAL 2 VIEWS on DOS: 06/28/25, DI ANKLE, COMPLETE(3VW MIN) on DOS: 07/18/24 FINDINGS/IMPRESSION: There is no evidence of acute fracture or dislocation. Soft tissues are unremarkable. Electronically Signed by:MARQUISE QUINONEZ MD Date & Time: 06/30/252201 Dictated by: MARQUISE QUINONEZ MD Dictation date and time: 06/30/252139 Primary Care Provider: NO PRIMARY CARE PROVIDER cc: CYRIL STEELE ~ Medical Decision Making Findings Patient is seen today with complaints of pain in his right leg from his hip to his right knee. Patient states that this has been going on for about a week. Patient states he is not exactly sure why has been hurting. Patient denies any chest pain or shortness of breath or abdominal pain or nausea, vomiting, diarrhea. Patient has no other concern or complaint at this time. Patient did have x-rays taken of right hip and right knee that showed no sign of acute fracture and no bony abnormalities. Patient will follow up with primary care for referral to medical reimbursement specialist for further eval and treatment of pain of his right leg. Patient will return to ED with any worsening, concerning or changing symptoms. Departure Disposition: 01 HOME / SELF CARE / HOMELESS Impression: Primary Impression: Pain in right leg Condition: Stable Discharge Instructions: Muscle Strain, [id number] Additional Instructions: Patient did have x-rays taken of right hip and right knee that showed no sign of acute fracture and no bony abnormalities. Patient will follow up with primary care for referral to medical reimbursement specialist for further eval and treatment of pain of his right leg. Patient will return to ED with any worsening, concerning or changing symptoms. Referrals: NO PRIMARY CARE PROVIDER (PCP) Additional Comment Additional Comment Patient declined admission at this time. Signature Scribe Signature: No scribe Attestation: No scribe CYRIL STEELE Jun 30, 2025 21:29
--- NOTE | 2025-06-30 22:04 | RADIOLOGY REPORT ---
CLINICAL INDICATION: right knee pain TECHNIQUE: 2 views, DI KNEE LIMITED (AP/LAT) Comparison: DI FEMUR 1 VIEW on DOS: 06/28/25, DI HIP UNILATERAL 2 VIEWS on DOS: 06/28/25, DI ANKLE, COMPL ETE(3VW MIN) on DOS: 07/18/24 FINDINGS/IMPRESSION: There is no evidence of acute fracture or dislocation. Soft tissues are unremarkable.
--- NOTE | 2025-06-30 22:11 | RADIOLOGY REPORT ---
CLINICAL INDICATION: right hip pain TECHNIQUE: 4 views, DI HIP UNILATERAL 2 VIEWS Comparison: DI FEMUR 1 VIEW on DOS: 06/28/25, DI HIP UNILATERAL 2 VIEWS on DOS: 06/28/25 FINDINGS/IMPRESSION: There is no evidence of acute fracture or dislocation. Soft tissues are unremarkable.
== END 2025-06-30 23:26 | disposition home or self-care (01) ==
LOC: ER 19:21
DX: M79.604 Pain in right leg (principal); K21.9 Gastro-esophageal reflux disease without esophagitis; E11.9 Type 2 diabetes mellitus without complications; E78.00 Pure hypercholesterolemia, unspecified; I10 Essential (primary) hypertension; I48.91 Unspecified atrial fibrillation; J44.9 Chronic obstructive pulmonary disease, unspecified; Z86.73 Personal history of transient ischemic attack (TIA), and cerebral infarction without residual deficits; Z79.899 Other long term (current) drug therapy
CPT/HCPCS: 73502; 73560; 99284

== ENCOUNTER 2025-10-17 02:42 | Inpatient (IN) | payer MEDICARE, MEDICAID ==
[2025-10-17] VITALS (24 sets, daily range): BP systolic 111–136; BP diastolic 47–88; PULSE 73–89; RESP 13–20; TEMP 97.7–98.6; O2SAT 96–100
[~2025-10-17] VITALS: Ht 165.1 cm; Wt 61.2 kg
--- NOTE | 2025-10-17 03:17 | ELECTROCARDIOGRAPH REPORT ---
[facility] Test Date: 2025-10-17 Test Time: 03:15:20 Pat Name: LU BELL Department: [facility]- Patient ID: [facility]-[id number] Room: Gender: M Latin Dancer: : 1960 Requested By: MARY ELLEN QUINTANA Order Number: [id number] Reading MD: Dr. Mary Ellen Quintana Measurements Intervals Shannon Rate: 78 P: 54 VA: 207 QRS: 59 QRSD: 84 T: 24 QT: 402 QTc: 458 Interpretive Statements Sinus rhythm Low voltage, precordial leads Baseline wander in lead(s) V3 Electronically Signed On 10-17-2025 3:25:[address] Mary Ellen Quintana Please click the below link to view image of tracing.
--- NOTE | 2025-10-17 03:38 | RADIOLOGY REPORT ---
CHEST RADIOGRAPH Indication: CP Technique: Single frontal view of the chest was obtained COMPARISON: DI CHEST,SINGLE VIEW on DOS: 11/19/24, DI CHEST,SINGLE VIEW on DOS: 05/19/24 FINDINGS: Lines and Tubes: None Lungs: Clear Pleura: No effusion. No pneumothorax. Cardiomediastinal contours: Unremarkable Bones: Unremarkable IMPRESSION: 1. No acute disease.
[2025-10-17 03:44] LABS: MEAN PLATELET VOLUME 7.7 FL (7.4-10.4); RED CELL DISTRIBUTION WIDTH 18.4 % (11.5-14.5)
[2025-10-17 04:04] LABS: CREATININE 1.39 MG/DL (0.60-1.10); PRO BRAIN NATRIURETIC PEPTIDE 160 PG/ML (0-125); TOTAL CARBON DIOXIDE 25.0 MMOL/L (24-32); eCRCL 45 ML/MIN; eGFR 51 ML/MIN
[2025-10-17] MEDS ORDERED: AMLO5TAB16 PO (05:07)
[2025-10-17] MEDS ORDERED: RIVA20TA PO (05:07)
[2025-10-17] MEDS ORDERED: TIOT18CA3 INH (05:07)
--- NOTE | 2025-10-17 06:52 | Physician Documentation ---
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 The reason he called the EMS is because he is throwing up coffee-ground emesis at 02:00. According to the patient it was quit e large. The patient denies any pain. The patient denies hematochezia or melena. He has been taking Xarelto 20 mg once a day. After the vomiting he is feeling short of breath upon activities. The patient denies abdominal pain denies chest pain. Medication Reconciliation Allergies: Coded Allergies: No Known Allergies (Unverified , 11/19/24) Scheduled Amlodipine Besylate (Amlodipine Besylate), 1 TAB PO DAILY, (Reported) Atorvastatin Calcium* (Lipitor*), 1 TAB PO HS, (Reported) Rivaroxaban (Xarelto), 1 TAB PO DAILY, (Reported) Sotalol Hcl (Sotalol), 40 MG PO BID, (Reported) Tiotropium [place] (Spiriva), 1 CAP INH DAILY, (Reported) Scheduled PRN Albuterol Sulfate (Ventolin Hfa), 2 PUFFS INH Q4HPRN PRN for wheezing, (Reported) Discontinued Medications Apixaban (Eliquis), 1 TAB PO Q12H, (Reported) Discontinued Reason: patient no longer taking Calcium Carbonate/Vitamin D3 (Calcium + D 600 Mg Tablet), 1 TAB PO Q12H, (Reported) Discontinued Reason: patient no longer taking Magnesium Hydroxide (Milk of Magnesia), 5 ML PO Q12H, (Reported) Discontinued Reason: patient no longer taking Tiotropium Br/Olodaterol HCl (Stiolto Respimat Inhal [place]), 2 PUFFS QAM, (Reported) Discontinued Reason: patient no longer taking [tylenol], 500 MG PO Q8HPRN PRN for pain, (Reported) Discontinued Reason: patient no longer taking Past Medical History Past Medical History: CVA/TIA/Stroke, Atrial Fibrillation, High Cholesterol, Hypertension, COPD, Pneumonia, GERD, Diabetes Past Surgical History: no surgical history Patient History: Patient reports no known family medical history. Alcohol Use: None Drug Use: none Lives with: Other Lives In: Assisted Care Occupation: retired Review of Systems ROS As stated above in the HPI, otherwise all systems are reviewed and negative. Physical Exam Vital Signs: Temperature: 98.0, Source: Oral, Heart Rate: 70, Respiratory Rate: 14, BP: 119/52, Pulse Oximetry: 95, Weight: 61.200 Oxygen Flow Rate: 0 Physical Exam Reviewed vital signs and they are stable. Const: Not in acute cardiopulmonary distress Head: Atraumatic Eyes: Normal Conjunctiva, pale conjunctiva no scleral jaundice ENT: Normal External Ears, Nose and Mouth. Moist mucous membrane Neck: Full range of motion. No meningismus Resp: Clear to auscultation bilaterally. Normal work of breathing Cardio: Heart rate is 78 beats per minute. Regular rate and rhythm, no murmurs. Skin well perfused Abd: Soft, non-tender, non-distended. Normal bowel sounds. No rebound or guarding Skin: No petechiae or rashes. Warm and dry Back: No midline or flank tenderness Ext: No cyanosis, or edema Neuro: Awake and alert Psych: Normal Mood and Affect Procedures Additional Procedures Procedure Note ED MD interpretation of EKG done at 03:15 hours shows sinus rhythm at a rate of 78. Low voltage. LAD. Normal segments. Normal intervals. No ischemic changes. Progress Results/Orders Results/Orders Orders - AUTUMN KIMBALL MD Iv Ppi (10/17/25 06:58) 2 Large Bore Ivs (10/17/25 06:58) Page Hospitalist (10/17/25 07:06) Completed Orders - AUTUMN KIMBALL MD PTT (10/17/25 06:58) Pt Inr (10/17/25 06:58) Type And Screen (10/17/25 06:58) Pantoprazole 40mg/Ns 100ml Bag (Protonix (10/17/25 07:00) Ondansetron Inj. (Zofran 4mg/2ml Vial) (10/17/25 07:05) Pantoprazole 40mg Iv (Protonix 40mg Iv) (10/17/25 07:05) Vital Signs 10/17/25 10/17/25 10/17/25 10/17/25 02:55 04:17 04:59 05:01 Temp 98.0 Pulse 79 70 68 Resp 16 20 20 B/P (MAP) 164/53 125/52 (76) 120/48 (72) Pulse Ox 97 98 95 95 O2 Delivery Room Air* O2 Flow Rate 0 0 0 FiO2 21 10/17/25 10/17/25 10/17/25 10/17/25 05:56 06:18 06:18 07:37 Temp 98.0 Pulse 70 70 81 Resp 20 14 14 15 B/P (MAP) 120/46 (70) 119/52 (74) 128/61 (83) Pulse Ox 97 95 97 O2 Flow Rate 0 0 0 FiO2 21 Laboratory Tests Test 10/17/25 03:25 10/17/25 07:11 White Blood Count 12.8 H Red Blood Count 2.88 L Hemoglobin 7.3 L Hematocrit 23.8 L Mean Corpuscular Volume 82.6 Mean Corpuscular Hemoglobin 25.5 L Mean Corpuscular Hemoglobin Concent 30.8 L Red Cell Distribution Width 18.4 H Platelet Count 196 Mean Platelet Volume 7.7 Neutrophils (%) (Auto) 69.9 Lymphocytes (%) (Auto) 16.2 L Monocytes (%) (Auto) 12.2 H Eosinophils (%) (Auto) 1.3 Basophils (%) (Auto) 0.4 Neutrophils # (Auto) 9.0 H Lymphocytes # (Auto) 2.1 Monocytes # (Auto) 1.6 H Eosinophils # (Auto) 0.2 Basophils # (Auto) 0.0 CBC Comment Sodium Level 144 Potassium Level 4.4 Chloride Level 109 H Carbon Dioxide Level 25.0 Anion Gap 10 Blood Urea Nitrogen 42 H Creatinine 1.39 H Estimated GFR/1.73 m2 51 BUN/Creatinine Ratio 30.2 H Glucose Level 96 Calcium Level 8.0 L Troponin I High Sensitivity 30 Pro-B-Type Natriuretic Peptide 160 H Albumin 3.0 L Chemistry Comments Prothrombin Time 15.6 H INR International Normalized Ratio 1.6 Activated Partial Thromboplast Time 31 Coagulation Comments Medical Decision Making Additional information obtaine: old records, family Findings During the physical examination, the findings suggestive of acute life- threatening condition such as JVD, tracheal deviation, acidotic breathing, noisy stridorous breath sounds, pulses paradoxus, muffled heart sounds, unequal breath sounds, abdominal rigidity and rebound tenderness, focal neurological deficits, cool clammy skin, severe hypotension, severe tachycardia or bradycardia are absent. Clinically patient is strikingly pale. He is comfortable. His CBC shows WBC 12.8 H&H 7.3 and 23.8 and platelets 196. Sodium 144 potassium 4.4 chloride 109 bicarb 25 BUN 42 creatinine 1.39 glucose 96 troponin 30 BNP 1 six 0. Chest x-ray is unremarkable. My impression is acute upper GI bleed. I started him on PPI drip after bolus. The patient needs to be admitted for further evaluation and treatment. GI consultation we will be obtained. Heart Score: 3 Differential Dx:Considerations: Include: bronchitis, pneumonia, pneumothorax Departure Disposition: ADMITTED INPATIENT Impression: Primary Impression: Upper GI bleeding Additional Impression: Medication induced coagulopathy Condition: Fair Referrals: NO PRIMARY CARE PROVIDER (PCP) Signature Scribe Signature: x Attestation: AUTUMN Norris MD Oct 17, 2025 06:52
[2025-10-17] MEDS ORDERED: pantoprazole 40mg IV 80 MG in normal saline 100ml IV soln 100 ML IV ONE (07:00)
[2025-10-17] MEDS: pantoprazole 40MG/NS 100ML BAG 100 ML IV ONE (07:19)
[2025-10-17] MEDS: ondansetron/PF 4mg/2ml inj IV ONE (07:20)
[2025-10-17 07:32] LABS: APTT 31 SECONDS (22-32); INR 1.6 INR
[2025-10-17] MEDS ORDERED: potassium Cl 40MEQ/1/2NS 520ml 520 ML IV PRN (07:45)
[2025-10-17] MEDS ORDERED: albuterol 2.5 MG/3 ML nebule NEB PRN (07:45)
[2025-10-17] MEDS ORDERED: magnesium hydroxide 30ml (MOM) UD suspension PO PRN (07:45)
[2025-10-17] MEDS ORDERED: mag hydrox/Alum hydrox/simeth 30ml oral suspension PO PRN (07:45)
[2025-10-17] MEDS ORDERED: ondansetron/PF 4mg/2ml inj IV PRN (07:45)
[2025-10-17] MEDS ORDERED: magnesium sulf-water 2g/50mL 50 ML IV PRN (07:45)
[2025-10-17] MEDS ORDERED: magnesium sulf-water 4G/100mL 100 ML IV PRN (07:45)
[2025-10-17] MEDS: normal saline 1000ml 1,000 ML IV SCH (07:45)
[2025-10-17] MEDS ORDERED: potassium Cl 20 mEq SR tablet PO PRN ×2 (07:45)
[2025-10-17] MEDS: docusate sod 100mg capsule PO SCH (08:00)
[2025-10-17] MEDS: K and/or MAG REPLACEMENT MC SCH (08:00)
--- NOTE | 2025-10-17 08:23 | HISTORY AND PHYSICAL ---
History & Physical Providers to CC ~ History of Present Illness Reason for Admit\Complaint: Upper GI bleed\hematemesis History of Present Illness This is a 65-year-old male who has a CVA at age 35 and has a AFib in his on Xarelto lives at an assisted living facility. At 2:00 a.m. the patient started vomiting a large amount of coffee-ground emesis and EMS was called. That has vlad dark dried emesis on the patient plastic transfer blanket. His baseline hemoglobin is 10 and hemoglobin on arrival to the ED 7.3. The patient was also very weak lightheaded and was unable to ambulate. The patient denies any abdominal pain or fever and denies any vlad melena or hematochezia. The patient is normotensive and heart rate in the 70s to 80s. 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 DNR code status ROS ROS Except for positives in the HPI the rest of the 14 point review systems is negative Exam Vitals: Vital Signs Date Time Temp Pulse Resp B/P (MAP) Pulse Ox O2 Delivery O2 Flow Rate FiO2 10/17/25 07:37 81 15 128/61 (83) 97 0 10/17/25 05:56 98.0 21 10/17/25 05:01 Room Air* General: Gen. No acute distress alert and oriented 4 Lungs coarse breath sounds in the upper lung randle otherwise clear Heart normal sinus rhythm no murmurs rubs or clicks noted Abdomen soft nontender bowel sounds are normoactive Lower extremities no clubbing cyanosis, nor edema appreciated bilaterally Diagnostic Data Last Recorded Lab Results: 10/17/25 0325 10/17/25 032 Diagnostic Data: Laboratory Tests Test 10/17/25 07:11 Prothrombin Time 15.6 SECONDS (9.0-12.0) H INR International Normalized Ratio 1.6 INR Activated Partial Thromboplast Time 31 SECONDS (22-32) Coagulation Comments Advance Care Planning Advanced Care plannin - 30 Minutes Problems: (1) Upper GI bleeding Status: Acute Additional Plan # upper GI bleed # acute anemia secondary to upper GI bleed # permanent atrial fibrillation on Xarelto Admitted on a monitor car operator Protonix drip Xarelto was held (reversal of Xarelto was discussed however I assessed that the risks at this juncture or greater than the benefits the patient has intractable bleeding requiring multiple transfusions then I will reverse Xarelto) I reviewed the case with Dr. Avery time study analyst who promptly evaluated the patient and the patient is NPO awaiting an upper endoscopy/EGD Close monitoring of hemoglobin # CVA at age 35 with residual right-sided weakness and mild dysarthria # hyperlipidemia Awaiting med reconciliation Aspirin will be held if the patient is taking aspirin due to upper GI bleed # COPD Oxygen saturation is in the mid-to-high 90s on room air PRN albuterol + PRN DuoNeb is ordered Incentive spirometer # acute kidney injury on stage III chronic kidney disease Monitor daily labs # leukocytosis The patient denies experiencing a fever and that has no fever documented The patient does not feel acutely ill other than the sequelae secondary to upper GI bleed No indication for antibiotics at this juncture Monitor daily CBC # DVT prophylaxis SCDs Chemical anticoagulation in his contraindicated due to upper GI bleed I spent a total of 17 minutes on reviewing various resuscitative measures/ ACP with the patient at the time of admission. The patient has decided on DNR code status. Date of Service: Oct 17, 2025 Billing Provider: MIKE CHOUDHURY DO Common Visit Codes: [id number] INP/OBS CARE (HIGH) Secondary Visit Codes: [id number] CARE PLAN 30 MINUTES MIKE CHOUDHURY DO Oct 17, 2025 08:23
[2025-10-17] MEDS ORDERED: midazolam 1 mg/ML 2ml injection ONE (09:04)
[2025-10-17] MEDS ORDERED: LIDOcaine 2% (20mg/ml) 5ml vial ONE (09:24)
[2025-10-17] MEDS: ipratropium/albuterol 3ml nebule NEB PRN (10:57)
[2025-10-17] MEDS: pantoprazole 40MG/NS 100ML BAG 100 ML IV SCH (12:01)
[2025-10-17 12:11] LABS: MEAN PLATELET VOLUME 7.8 FL (7.4-10.4); RED CELL DISTRIBUTION WIDTH 17.9 % (11.5-14.5)
[2025-10-17 12:27] LABS: CREATININE 1.19 MG/DL (0.60-1.10); TOTAL CARBON DIOXIDE 25.4 MMOL/L (24-32); eCRCL 53 ML/MIN; eGFR 61 ML/MIN
--- NOTE | 2025-10-17 19:20 | CONSULTATION ---
DATE OF CONSULTATION: 10/17/2025 DICTATING PHYSICIAN: Maura Avery MD REASON FOR CONSULTATION: Hematemesis. HISTORY OF PRESENT ILLNESS: The patient is elderly, lives in an assisted living facility with history of hypertension, COPD; atrial fibrillation, on Xarelto, was brought in around 2 o'clock in the morning with 2 episodes of hematemesis. According to the sister, it was a large bottle of hematemesis. He has not had any melena as he can report, although he has had a bowel movement and reports that he has not seen the color of the stool. There is no history of any excessive nonsteroidal anti-inflammatories or aspirin. No history of any alcoholism. He has not had similar episodes in the past. He has never had this problem. He used to be drinking until about 29 years ago when he had a stroke and he quit drinking alcohol at that time. His INR of 1.4 and hemoglobin was 7.3. His baseline hemoglobin is around 10. PAST MEDICAL HISTORY: As above. FAMILY HISTORY: Noncontributory. PERSONAL HISTORY: Noncontributory. REVIEW OF SYSTEMS: A 12-point review of systems, same as history of present illness. PHYSICAL EXAMINATION: GENERAL: He is awake, alert, appears to be in no apparent distress. He appears somewhat disheveled. VITAL SIGNS: Normal. NECK: Supple. No thyromegaly. No JVD. No significant lymphadenopathy. HEENT: Oral cavity within normal limits. HEART: Both the heart sounds heard well, no rubs or murmurs. LUNGS: Clear to auscultation and percussion. ABDOMEN: Soft, nontender. No masses. No organomegaly. Bowel sounds are present. EXTREMITIES: Reveal no clubbing, cyanosis or edema. IMPRESSION: Elderly man admitted with hematemesis. Seems to be hemodynamically stable at this time. Peptic ulcer disease is a very likely possibility. I do not see any other etiology for GI bleeding including excessive aspirin or nonsteroidal anti-inflammatories or alcohol consumption. RECOMMENDATIONS: Continue current management plan including monitoring and empiric therapy with PPI. Diagnostic endoscopy will be performed, if necessary therapeutic intervention will be done. The risks and benefits explained, understands and wishes to proceed. Further recommendations will be made after the endoscopy. Maura Avery MD TID: [id number] RECEIPT: [id number] JERICHO/MAGED
[2025-10-17 21:12] LABS: MEAN PLATELET VOLUME 7.7 FL (7.4-10.4); RED CELL DISTRIBUTION WIDTH 16.9 % (11.5-14.5)
[2025-10-18] VITALS (10 sets, daily range): BP systolic 102–121; BP diastolic 33–50; PULSE 74–87; RESP 16–20; TEMP 97.6–99.5; O2SAT 92–96
[2025-10-18 07:04] LABS: MEAN PLATELET VOLUME 7.6 FL (7.4-10.4); RED CELL DISTRIBUTION WIDTH 17.0 % (11.5-14.5)
[2025-10-18 07:13] LABS: CREATININE 1.13 MG/DL (0.60-1.10); TOTAL CARBON DIOXIDE 24.9 MMOL/L (24-32); eCRCL 56 ML/MIN; eGFR 65 ML/MIN
--- NOTE | 2025-10-18 10:20 | PROGRESS NOTE ---
Daily Progress Note Providers to CC ~ Antibiotic Timeout Antibiotic Ordered?: No Subjective The patient is started on clear liquid diet today his hemoglobin improved from 6.6-10.0 after transfusion of 2 units of packed red blood cells. I spoke with Dr. Avery computer processing scheduler who recommended outpatient colonoscopy and pending if the patient remains hospitalized on 10/20 a repeat EGD otherwise outpatient repeat EGD Objective Vital Signs Date Time Temp Pulse Resp B/P (MAP) Pulse Ox O2 Delivery O2 Flow Rate FiO2 10/18/25 08:51 77 18 Room Air 0.0 10/18/25 08:46 94 21 10/18/25 06:34 99.2 118/48 (71) Result Diagram: 10/18/2536 10/18/2536 Gen. No acute distress alert and oriented Lungs clear to ascultation bilaterally, no wheezes rales or rhonchi appreciated Heart normal sinus rhythm no murmurs rubs or clicks noted Abdomen soft minimal epigastric tenderness bowel sounds are normoactive Lower extremities no clubbing cyanosis, nor edema appreciated bilaterally Coagulation Studies Laboratory Tests Test 10/17/25 07:11 Prothrombin Time 15.6 SECONDS (9.0-12.0) H INR International Normalized Ratio 1.6 INR Activated Partial Thromboplast Time 31 SECONDS (22-32) Coagulation Comments Problem\Assessment\Plan Problems/Diagnosis: (1) Upper GI bleeding # upper GI bleed # acute anemia secondary to upper GI bleed # permanent atrial fibrillation on Xarelto Admitted on a associate professor of media arts Protonix drip Xarelto was held (reversal of Xarelto was discussed however I assessed that the risks at this juncture or greater than the benefits the patient has intractable bleeding requiring multiple transfusions then I will reverse Xarelto) I reviewed the case with Dr. Avery computer processing scheduler who promptly evaluated the patient and the patient is NPO awaiting an upper endoscopy/EGD: EGD demonstrated LA grade D reflux esophagitis with no bleeding, adbgyaafn-rduwnjylbd-xbnrxjhqwhas-eroded and ulcerated mucosa in the gastric body and antrum Hemoglobin dropped to 6.6 - 2 units of packed red blood cells is ordered to be transfused Close monitoring of hemoglobin 10/18 The patient is started on clear liquid diet today his hemoglobin improved from 6.6-10.0 after transfusion of 2 units of packed red blood cells. I spoke with Dr. Avery computer processing scheduler who recommended outpatient colonoscopy and pending if the patient remains hospitalized on 10/20/25 a repeat EGD otherwise outpatient repeat EGD # CVA at age 35 with residual right-sided weakness and mild dysarthria # hyperlipidemia Awaiting med reconciliation Aspirin will be held if the patient is taking aspirin due to upper GI bleed # COPD Oxygen saturation is in the mid-to-high 90s on room air PRN albuterol + PRN DuoNeb is ordered Incentive spirometer # acute kidney injury possibly secondary to vasomotor nephropathy on stage III chronic kidney disease Monitor daily labs 10/18 improved # leukocytosis The patient denies experiencing a fever and that has no fever documented The patient does not feel acutely ill other than the sequelae secondary to upper GI bleed No indication for antibiotics at this juncture Monitor daily CBC 10/18 has normalized with a white blood cell count of a 8,800 # DVT prophylaxis SCDs Chemical anticoagulation in his contraindicated due to upper GI bleed Date of Service: Oct 18, 2025 Billing Provider: MIKE CHOUDHURY DO Common Visit Codes: [id number] INP/OBS CARE(HIGH) MIKE CHOUDHURY DO Oct 18, 2025 10:20
[2025-10-18] MEDS ORDERED: morphine 4 MG/ML inj SYRINge IV PRN (21:08)
[2025-10-18] MEDS: morphine 4 MG/ML inj SYRINge IV PRN (21:29)
[2025-10-19 05:00] VITALS: BP 103/47; PULSE 79; RESP 18; TEMP 97.4; O2SAT 94
[2025-10-19 06:31] LABS: MEAN PLATELET VOLUME 7.2 FL (7.4-10.4); RED CELL DISTRIBUTION WIDTH 17.1 % (11.5-14.5)
[2025-10-19 07:03] LABS: CREATININE 1.10 MG/DL (0.60-1.10); TOTAL CARBON DIOXIDE 25.9 MMOL/L (24-32); eCRCL 57 ML/MIN; eGFR 67 ML/MIN
[2025-10-19 07:24] LABS: PLATELET ESTIMATE NORMAL
[2025-10-19 10:38] VITALS: BP 95/43; PULSE 77; RESP 18; TEMP 97.7; O2SAT 94
[2025-10-19 12:08] LABS: MEAN PLATELET VOLUME 7.3 FL (7.4-10.4); RED CELL DISTRIBUTION WIDTH 17.2 % (11.5-14.5)
--- NOTE | 2025-10-19 15:02 | PROGRESS NOTE ---
Daily Progress Note Providers to CC ~ Antibiotic Timeout Antibiotic Ordered?: No Subjective Patient dropped his hemoglobin today from 10 yesterday and now is 8.5 in in the room there was a smear of melena stool as well as the smell of dried blood. Nursing staff has no other complaints the patient was hyper focused on having to urinate prior to my evaluation Objective Vital Signs Date Time Temp Pulse Resp B/P (MAP) Pulse Ox O2 Delivery O2 Flow Rate FiO2 10/19/25 10:38 97.7 77 18 95/43 (60) 94 Room Air 10/19/25 08:00 0.0 21 Result Diagram: 10/19/25 1157 10/19/25 0619 Gen. No acute distress alert and oriented Lungs clear to ascultation bilaterally, no wheezes rales or rhonchi appreciated Heart normal sinus rhythm no murmurs rubs or clicks noted Abdomen soft minimal epigastric tenderness bowel sounds are normoactive Lower extremities no clubbing cyanosis, nor edema appreciated bilaterally Coagulation Studies Laboratory Tests Test 10/17/25 07:11 Prothrombin Time 15.6 SECONDS (9.0-12.0) H INR International Normalized Ratio 1.6 INR Activated Partial Thromboplast Time 31 SECONDS (22-32) Coagulation Comments Problem\Assessment\Plan Problems/Diagnosis: (1) Upper GI bleeding This is a 65-year-old male who lives in his assisted living facility due to prior CVAs- was admitted with the upper GI bleed and an EGD demonstrated: LA grade D reflux esophagitis with no bleeding, phvjwedmh-aepgyfpuzf-ievrvtsezhbs-eroded and ulcerated mucosa in the gastric body and antrum. The patient had some food material in the stomach and that is Dr. Avery recommended that if the patient remained hospitalized a repeat EGD we will be warranted on October 20. The patient today dropped his hemoglobin to 8.5 and there was the smell of melena in the room as well as a smear of dark mount and a stool on the patient's bedding. The patient is NPO for an EGD tomorrow and I spoke to the nursing shed workers supervisor who will arrange for surgical time tomorrow. I has been in communication with Dr. Avery and requested that I speak with the nursing shed workers supervisor. # upper GI bleed # acute anemia secondary to upper GI bleed # permanent atrial fibrillation on Xarelto Admitted on a softball core molder Protonix drip Xarelto was held (reversal of Xarelto was discussed however I assessed that the risks at this juncture or greater than the benefits the patient has intractable bleeding requiring multiple transfusions then I will reverse Xarelto) I reviewed the case with Dr. Avery journalism professor who promptly evaluated the patient and the patient is NPO awaiting an upper endoscopy/EGD: EGD demonstrated LA grade D reflux esophagitis with no bleeding, zoghavxui-pfgpsesrzf-xjklnkbbuixz-eroded and ulcerated mucosa in the gastric body and antrum Hemoglobin dropped to 6.6 - 2 units of packed red blood cells is ordered to be transfused Close monitoring of hemoglobin 10/18 The patient is started on clear liquid diet today his hemoglobin improved from 6.6-10.0 after transfusion of 2 units of packed red blood cells. I spoke with Dr. Avery journalism professor who recommended outpatient colonoscopy and pending if the patient remains hospitalized on 10/20/25 a repeat EGD otherwise outpatient repeat EGD 10/12 hemoglobin dropped to 8.5 today with a smear vlad melena stool on the bedding and a smell of dried blood in the room I spoke with who is taking the patient for repeat EGD tomorrow. # CVA at age 35 with residual right-sided weakness and mild dysarthria # hyperlipidemia Awaiting med reconciliation Aspirin will be held if the patient is taking aspirin due to upper GI bleed # COPD Oxygen saturation is in the mid-to-high 90s on room air PRN albuterol + PRN DuoNeb is ordered Incentive spirometer # acute kidney injury possibly secondary to vasomotor nephropathy on stage III chronic kidney disease Monitor daily labs 10/18 improved # leukocytosis The patient denies experiencing a fever and that has no fever documented The patient does not feel acutely ill other than the sequelae secondary to upper GI bleed No indication for antibiotics at this juncture Monitor daily CBC 10/18 has normalized with a white blood cell count of a 8,800 # DVT prophylaxis SCDs Chemical anticoagulation in his contraindicated due to upper GI bleed Disposition: EGD in the a.m. Date of Service: Oct 19, 2025 Billing Provider: MIKE CHOUDHURY DO Common Visit Codes: [id number] INP/OBS CARE(HIGH) MIKE CHOUDHURY DO Oct 19, 2025 15:02
[2025-10-19 15:41] VITALS: PULSE 76; RESP 17; O2SAT 94
[2025-10-19 18:00] VITALS: BP 117/49; PULSE 79; RESP 18; TEMP 98.4; O2SAT 95
[2025-10-19 20:00] VITALS: RESP 18; O2SAT 95
[2025-10-19 22:00] VITALS: BP 114/76; PULSE 72; RESP 14; TEMP 97.6; O2SAT 93
[2025-10-20] VITALS (12 sets, daily range): BP systolic 112–143; BP diastolic 44–64; PULSE 68–85; RESP 12–18; TEMP 97.5–99.3; O2SAT 94–100
[2025-10-20 06:19] LABS: MEAN PLATELET VOLUME 7.8 FL (7.4-10.4); RED CELL DISTRIBUTION WIDTH 17.4 % (11.5-14.5)
[2025-10-20 06:22] LABS: CREATININE 1.05 MG/DL (0.60-1.10); TOTAL CARBON DIOXIDE 26.8 MMOL/L (24-32); eCRCL 60 ML/MIN; eGFR 71 ML/MIN
[2025-10-20] MEDS ORDERED: fentaNYL/PF 50MCG/1 ML 2ML syringe ONE (11:43)
[2025-10-20] MEDS ORDERED: MIDAZolam 1 MG/ML 5ML VIAL ONE (11:43)
[2025-10-20] MEDS ORDERED: PANT40TA54 PO (13:04)
--- NOTE | 2025-10-20 19:50 | DISCHARGE SUMMARY ---
Discharge Summary Providers to CC ~ Discharge Summary Admission Diagnosis: Upper GI bleed-AFib on Xarelto Hospital Course DATE OF ADMISSION: 10/17/25 DATE OF DISCHARGE:10/20/2025 CBC testing done on October 20, 2025 WBC 5.7 hemoglobin 8.7 hematocrit 25.5 platelet count 152. Serum chemistry done on October 20, 2025 sodium 142 potassium 3.5 creatinine 1.05 GFR 71 normal liver enzymes troponin 30 proBNP 160. CHEST,SINGLE VIEWIMPRESSION: 1. No acute disease. 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 and mild dysarthria # hyperlipidemia # chronic COPD not in exacerbation # acute kidney injury possibly secondary to vasomotor nephropathy on stage III chronic kidney disease # reactive leukocytosis resolved Operations\Procedures: EGD done by Dr Landis Consultants: Dr Landis Complications: none Condition on DC: Stable New Medications: Pantoprazole Sodium (Pantoprazole Sodium) 40 Mg Tablet.dr 40 MG PO BID for 30 Days, #60 TAB.SR Continued Medications: Albuterol Sulfate (Ventolin Hfa) 90 Mcg Hfa.aer.ad 2 PUFFS INH Q4HPRN PRN for wheezing for 30 Days, #18 GM 0 Refills Amlodipine Besylate (Amlodipine Besylate) 5 Mg Tablet 1 TAB PO DAILY Atorvastatin Calcium* (Lipitor*) 40 Mg Tablet 1 TAB PO HS for 30 Days, #30 TAB Rivaroxaban (Xarelto) 20 Mg Tablet 1 TAB PO DAILY Sotalol Hcl (Sotalol) 80 Mg Tablet 40 MG PO BID, TAB Tiotropium [place] (Spiriva) 18 Mcg Cap.w.dev 1 CAP INH DAILY Discharge Summary: This is a 65-year-old male who lives in his assisted living facility due to prior CVAs- was admitted with the upper GI bleed and an EGD demonstrated: LA grade D reflux esophagitis with no bleeding, yrwbixrew-ettkzdogzm-fnzfehkueezp-eroded and ulcerated mucosa in the gastric body and antrum. The patient had some food material in the stomach and that is Dr. Avery recommended that if the patient remained hospitalized a repeat EGD we will be warranted on October 20. The patient today dropped his hemoglobin to 8.5 and there was the smell of melena in the room as well as a smear of dark mount and a stool on the patient's bedding. The patient is NPO for an EGD tomorrow and Dr Rivera spoke to the nursing supervisor cloth winding who will arrange for surgical time tomorrow. He has been in communication with Dr. Avery and requested that Dr Rivera speak with the nursing supervisor cloth winding. # upper GI bleed secondary to grade C reflux esophagitis with no bleeding, gastritis # acute anemia secondary to upper GI bleed # permanent atrial fibrillation on Xarelto Admitted on a professional model treated with Protonix drip Xarelto was held Dr Rivera reviewed the case with Dr. Avery coloring room worker who promptly evaluated the patient and the patient is NPO awaiting an upper endoscopy/EGD: EGD demonstrated LA grade D reflux esophagitis with no bleeding, xdzvgirtv-fvloehjanj-sxlenuwjcohd-eroded and ulcerated mucosa in the gastric body and antrum Hemoglobin dropped to 6.6 - 2 units of packed red blood cells is ordered to be transfused Close monitoring of hemoglobin 10/18 The patient is started on clear liquid diet today his hemoglobin improved from 6.6-10.0 after transfusion of 2 units of packed red blood cells. I spoke with Dr. Avery coloring room worker who recommended outpatient colonoscopy and pending if the patient remains hospitalized on 10/20/25 a repeat EGD otherwise outpatient repeat EGD 10/12 hemoglobin dropped to 8.5 today with a smear vlad melena stool on the bedding and a smell of dried blood in the room I spoke with wh o is taking the patient for repeat EGD tomorrow. 10/20/25-repeat EGD done today showed grade C reflux esophagitis with no bleedin g, gastritis # CVA at age 35 with residual right-sided weakness and mild dysarthria # hyperlipidemia Awaiting med reconciliation Aspirin will be held if the patient is taking aspirin due to upper GI bleed # COPD Oxygen saturation is in the mid-to-high 90s on room air PRN albuterol + PRN DuoNeb is ordered Incentive spirometer # acute kidney injury possibly secondary to vasomotor nephropathy on stage III chronic kidney disease Monitor daily labs 10/18 improved # leukocytosis-resolved The patient denies experiencing a fever and that has no fever documented The patient does not feel acutely ill other than the sequelae secondary to upper GI bleed No indication for antibiotics at this juncture Monitor daily CBC 10/18 has normalized with a white blood cell count of a 8,800 # DVT prophylaxis SCDs Chemical anticoagulation in his contraindicated due to upper GI bleed Patient is feeling better she has been afebrile and getting discharged home in stable condition. Patient is seen and examined on the day of discharge. All labs, diagnostic workup and discharge plan discussed with patient and sister( on phone ) in detail before her discharge. All questions and queries answered to the best of my professional medical knowledge. I heard patient's concerns and address appropriately. Patient was cleared by Physical therapy team for home discharge. fitness centre manager involved in patient's discharge plan. Discharge instructions provided to the patient. Follow-up with primary care physician in outpatient setting in one week for hospital follow-up visit. Continue to monitor CBC once a week for 1st month and then as recommended by PCP. Read the side effects of Xarelto and discussed with PCP. Avoid taking any NSAID group of pain medications or any other blood thinners along with Xarelto. General-patient not in any acute distress, alert awake oriented, chronically ill-appearing, looks comfortable HEENT-atraumatic normocephalic, neck supple without elevated JVD, no thyromegaly or carotid bruit. No lymphadenopathy bilaterally. Eyes-no icterus or pallor seen in eyes Chest-clear to auscultation bilaterally, breathing nonlabored no tachypnea, no wheezing, no crepitation, no crackles. Heart-S1-S2 normal, regular heart rate no murmur Abdomen bowel sounds positive on auscultation, soft nondistended nontender no guarding, no rigidity Skin no active skin rash Neurology-grossly intact, nonfocal alert awake oriented Extremity- no pedal edema able to move all 4 extremities, signs of weakness present over right lower extremity Psychiatry - patient is not confused or agitated cooperated during physical examination *Problems/Diagnosis: (1) Upper GI bleeding Status: Acute Total Time Spent on D/C: > 30 Minutes Date of Service: Oct 20, 2025 Billing Provider: JOHNNY VÁSQUEZ MD Common Visit Codes: 61022-AVE/OBS DISCH DAY >30min JOHNNY VÁSQUEZ MD Oct 20, 2025 19:43
== END 2025-10-20 15:50 | disposition home or self-care (01) | DRG 377 ==
LOC: ER 02:43 → ED HOLD 08:16 → SUR 3N 10:33
PROVIDERS: ADMIT Family Medicine; ATTEND Family Medicine
PROC: 0DB68ZX Excision of Stomach, Via Natural or Artificial Opening Endoscopic, Diagnostic (ICD-10-PCS; 2025-10-17)
PROC: 30233N1 Transfusion of Nonautologous Red Blood Cells into Peripheral Vein, Percutaneous Approach (ICD-10-PCS; 2025-10-17)
PROC: 0DB68ZX Excision of Stomach, Via Natural or Artificial Opening Endoscopic, Diagnostic (ICD-10-PCS; principal; 2025-10-17 08:56)
PROC: 0DB68ZX Excision of Stomach, Via Natural or Artificial Opening Endoscopic, Diagnostic (ICD-10-PCS; 2025-10-20)
PROC: 0DB78ZX Excision of Stomach, Pylorus, Via Natural or Artificial Opening Endoscopic, Diagnostic (ICD-10-PCS; 2025-10-20)
DX: K29.71 Gastritis, unspecified, with bleeding (principal); N17.0 Acute kidney failure with tubular necrosis; D68.9 Coagulation defect, unspecified; Z66 Do not resuscitate; I48.21 Permanent atrial fibrillation; K20.91 Esophagitis, unspecified with bleeding; Z79.01 Long term (current) use of anticoagulants; E11.22 Type 2 diabetes mellitus with diabetic chronic kidney disease; I12.9 Hypertensive chronic kidney disease with stage 1 through stage 4 chronic kidney disease, or unspecified chronic kidney disease; J44.9 Chronic obstructive pulmonary disease, unspecified; N18.30 Chronic kidney disease, stage 3 unspecified; D62 Acute posthemorrhagic anemia; D72.829 Elevated white blood cell count, unspecified; K44.9 Diaphragmatic hernia without obstruction or gangrene; E78.00 Pure hypercholesterolemia, unspecified; R47.1 Dysarthria and anarthria; Z86.73 Personal history of transient ischemic attack (TIA), and cerebral infarction without residual deficits; Z82.5 Family history of asthma and other chronic lower respiratory diseases; Z98.1 Arthrodesis status
CPT/HCPCS: 36415; 36430; 43239; 71045; 80048; 80053; 83735; 83880; 84484; 85008; 85025; 85027; 85610; 85730; 86885; 86900; 86901; 86920; 87081; 88305; 88342; 93005; 94640; 94760; 96365; 96375; 97116; 97161; 99152; 99285; A4615; A4620; A6258; G0378; J2003; J2250; J2270; J2405; J2470; J3010; J7030; J7040; J7120; P9016